=== PATIENT | female | born 1950 | race Caucasian/White ===

== ENCOUNTER 2019-07-20 15:47 | Outpatient (CLI) | payer MEDICARE, MEDICAID, SELFPAY ==
[2019-07-20 16:55] LABS: Alanine Aminotransferase 11 U/L (0-33); Albumin Level 4.4 g/dL (3.5-5.2); Alkaline Phosphatase 101 IU/L (35-105); Anion Gap 13.9 (5-19); Aspartate Amino Transferase 21 U/L (0-32); Blood Urea Nitrogen 10 mg/dL (8-23); Calcium 9.8 mg/Dl (8.8-10.2); Carbon Dioxide 30 mmol/L (22-29); Chloride 100 mmol/L (98-107); Globulin 3.2 g/dL (1.3-4.6); Glomerular Filtration Rate 99.4 mL/min (90-130); Glucose 92 mg/dL (74-106); Potassium 3.9 mmol/L (3.5-5.1); Sodium 140 mmol/L (136-145); Total Bilirubin 0.4 mg/dL (0.15-1.2); Total Protein 7.6 g/dL (6.6-8.7)
== END 2019-07-20 15:48 | disposition home or self-care (01) ==
LOC: LAB 15:54
PROVIDERS: Family Provider Family Medicine; PCP Internal Medicine Cardiovascular Disease; Visit Provider Internal Medicine Critical Care Medicine
DX: J44.9 Chronic obstructive pulmonary disease, unspecified (principal)
CPT/HCPCS: 80053

== ENCOUNTER 2019-08-02 14:23 | Outpatient (CLI) | payer MEDICARE, MEDICAID, SELFPAY ==
--- NOTE | 2019-08-02 14:32 | XR_ITS ---
WS: [id number] DEXA (DUAL ENERGY X-RAY ABSORPTIOMETRY) Bone mineral density was performed using a [employer] machine. HISTORY: OSTEOPOROSIS COMPARISON: None available. Lumbar spine BMD (L1-L4): 0.805 g/cm2 T score: -3.1 Z score: -0.5 Total hip BMD: Left: 0.610 g/cm2. T score: -3.2 Z score: -1.1 Right: 0.598 g/cm2. T score: -3.3 Z score: -1.2 10 year probability of a major osteoporotic fracture is 25%. XR/XR DEXA axial skeleton* 59229 IMPRESSION: OSTEOPOROSIS based upon the WHO classification for females. Patient has signifi cant risk for fracture.
== END 2019-08-02 14:24 | disposition home or self-care (01) ==
LOC: RADWPI 14:28
PROVIDERS: Family Provider Family Medicine; PCP Internal Medicine Cardiovascular Disease; Visit Provider Family Medicine
DX: M81.8 Other osteoporosis without current pathological fracture (principal)
CPT/HCPCS: 77080

== ENCOUNTER 2019-08-29 09:50 | Day surgery (SDC) | payer MEDICARE, MEDICAID, SELFPAY ==
[2019-08-26 12:43] VITALS: BMI 14.6
--- NOTE | 2019-08-29 10:05 | ANES.PREANE2 ---
Pre-Anesthetic Assessment Pre-Anesthetic Assessment: Height/Weight: Height 1.57 m Weight 36.287 kg Proposed Procedure: Operation Date: 08/29/19 12:00 Proposed Procedures p Colonoscopy Z12.11 73726(Not Applicable) - Yoseph Herndon MD Was Beta Contreras taken within 24 hours: Yes Social: Social History: Tobacco and No alcohol Exam: Pre-Anes Outpt Exam: alert, oriented x 3, clear to auscultation bilaterally and regular rate & rhythm Airway: Submandibular: WNL Cervical ROM: WNL MP: 2 Dentition: Full History/ROS: No significant history except as noted Pulmonary: Pulmonary: COPD, Cough and BRITTON CV/HEM: CV/HEM: HTN and PVD : : None reported Hepatic: Hepatic: None reported GI: GI: GERD (not well controlled) Metabolic: Metabolic: Hyperlipidemia Musc/skel: Musc/skel: OA/DJD Neuropsych: Neuropsych: TIA (2018) Anesthetic Plan: ASA status: 4 Anesthesia: Anesthesia Evaluation and MAC Risk of > 500 ml blood loss (7ml/kg in children): No PFSH Anesthesia PFSH: Medical History (Updated 08/18/19 @ 10:25 by Mickey Engel DPM) Carotid artery stenosis Chest pain COPD (chronic obstructive pulmonary disease) COPD exacerbation GERD (gastroesophageal reflux disease) History of colon polyps (~2002) HTN (hypertension) Hyperlipidemia Nicotine dependence PVD (peripheral vascular disease) TIA (transient ischemic attack) Surgical History H/O exploratory laparotomy H/O eye surgery H/O tubal ligation History of appendectomy History of colonoscopy (~2002) History of hysterectomy History of removal of ovarian cyst Social History Smoking and tobacco status: current every day smoker cigarettes Packs smoked per day: 1 Years cigarettes smoked: 45 Second hand smoke exposure: No Alcohol intake: never Adopted: No Caregiver/support person: Yes Lives independently: Yes Household members: none Housing: Apartment Marital status: Single service: No Current occupational status: retired Current occupational exposures/hazards: No Pets and animals: No History of recent travel: No Sexually active: No Current gender identity: Female Kaylin/Yazidism: Judaism Special kaylin needs: No Agree to transfusion: No Financial difficulty paying for basics: Decline to Answer Data Anesthesia Cardiac Studies: No Data to Display
[2019-08-29 10:52] VITALS: BP 110/64; PULSE 102; RESP 18; TEMP 36.9; O2SAT 94
[2019-08-29] MEDS: sodium chloride 0.9% 1,000 ML 30 ML (10:58)
--- NOTE | 2019-08-29 11:46 | PM.HPUD ---
H&P update H&P Update: DATE OF SURGERY/PROCEDURE: 08/29/19 DATE H&P PERFORMED: 08/15/19 H&P UPDATE INFORMATION: H&P completed within last 30 days and No changes to prior documentation PREOP DIAGNOSIS: Screening colonoscopy PRIMARY INDICATION FOR PROCEDURE: The same PLANNED PROCEDURE: Operation Date: 08/29/19 12:00 Proposed Procedures p Colonoscopy Z12.11 68679(Not Applicable) - Yoseph Herndon MD Full H&P Perinent History: Medical/Surgical History: Medical History (Updated 08/18/19 @ 10:25 by Mickey Enegl DPM) Carotid artery stenosis Chest pain COPD (chronic obstructive pulmonary disease) COPD exacerbation GERD (gastroesophageal reflux disease) History of colon polyps (~2002) HTN (hypertension) Hyperlipidemia Nicotine dependence PVD (peripheral vascular disease) TIA (transient ischemic attack) Family History: Family History (Updated 08/15/19 @ 10:13 by Opal Arnold RN) Father CAD (coronary artery disease) Grandmother FH: CABG (coronary artery bypass surgery) Denies family history of Anesthesia complication Bleeding disorder Social History: Social History Smoking and tobacco status: current every day smoker cigarettes Packs smoked per day: 1 Years cigarettes smoked: 45 Second hand smoke exposure: No Alcohol intake: never Adopted: No Caregiver/support person: Yes Lives independently: Yes Household members: none Housing: Apartment Marital status: Single service: No Current occupational status: retired Current occupational exposures/hazards: No Pets and animals: No History of recent travel: No Sexually active: No Current gender identity: Female Kaylin/Cheondoism: Orthodoxy Special kaylin needs: No Agree to transfusion: No Financial difficulty paying for basics: Decline to Answer
[2019-08-29 12:13] VITALS: BP 88/47; PULSE 72; RESP 18; TEMP 36.8; O2SAT 99
[2019-08-29 12:23] VITALS: BP 109/54; PULSE 76; RESP 18; O2SAT 100
[2019-08-29 12:33] VITALS: BP 128/69; PULSE 79; RESP 18; O2SAT 100
== END 2019-08-29 12:35 | disposition home or self-care (01) ==
PROVIDERS: Family Provider Family Medicine; PCP Family Medicine; Visit Provider Surgery
PROC: 0DJD8ZZ Inspection of Lower Intestinal Tract, Via Natural or Artificial Opening Endoscopic (ICD-10-PCS; CPT 45378; principal; 2019-08-29 12:00)
DX: Z12.11 Encounter for screening for malignant neoplasm of colon (principal); K62.1 Rectal polyp; J44.9 Chronic obstructive pulmonary disease, unspecified; K21.9 Gastro-esophageal reflux disease without esophagitis; I10 Essential (primary) hypertension; E78.5 Hyperlipidemia, unspecified; F17.210 Nicotine dependence, cigarettes, uncomplicated; Z86.73 Personal history of transient ischemic attack (TIA), and cerebral infarction without residual deficits; Z82.49 Family history of ischemic heart disease and other diseases of the circulatory system; Z79.82 Long term (current) use of aspirin; M19.90 Unspecified osteoarthritis, unspecified site
CPT/HCPCS: 12345; 45385; J2704; J7030

== ENCOUNTER 2020-01-20 08:56 | Outpatient (CLI) | payer MEDICARE, MEDICAID, SELFPAY ==
[2020-01-20 09:44] VITALS: O2SAT 95
--- NOTE | 2020-01-20 14:10 | PFTS_ITS ---
Date of Study:01/20/20 Date of Dictation: MECHANICS: Forced vital capacity (FVC) is reduced. Forced expiratory volume in one second (FEV1) is reduced. FEV1/FVC is reduced. FLOW VOLUME LOOP: Reduced flow at all lung volumes. LUNG VOLUMES: The lung volumes are not measured. The inspiratory capacity and expiratory reserve volume are both reduced. DIFFUSING CAPACITY FOR CARBON MONOXIDE: Severely reduced. INTERPRETATION: The pulmonary function tests are consistent with severe obstruction. A component of restriction cannot be ruled out in the absence of lung volumes. Gas exchange (DLCO) is severely reduced. MTDD
== END 2020-01-20 08:57 | disposition home or self-care (01) ==
LOC: RT 08:59
PROVIDERS: Family Provider Family Medicine; PCP Family Medicine; Visit Provider Internal Medicine Critical Care Medicine
DX: J44.9 Chronic obstructive pulmonary disease, unspecified (principal)
CPT/HCPCS: 94010; 94729

== ENCOUNTER 2020-01-23 09:24 | Outpatient (CLI) | payer MEDICARE, MEDICAID, SELFPAY ==
--- NOTE | 2020-01-23 09:28 | CT_ITS ---
WS: [id number] LDCT LUNG CANCER SCREENING TECHNIQUE: Noncontrast CT of the chest with coronal and sagittal reformatted images. CLINICAL INFORMATION: NICOTINE DEPENDENCE COMPARISON: None. DLP: 103.1 mGy.cm DIvol: 2.[address] scans at [facility] use at least one of these dose optimization techniques: automat ed exposure control; mA and/or kV adjustment per patient size (includes targeted exams where dose is matched to clinical indication); or iterative reconstruction. FINDINGS: Chronic emphysematous changes. Fibrosis in the lung apices. Scattered parenchymal fibrosis in both ketty ngs. Fibrotic appearing nodule in the left upper lobe anteriorly measuring 5.5 mm. Vascular and coron fatimah calcification. CT/CT lung screening [id number] IMPRESSION: LUNG-RADS: 2-Benign Appearance or Behavior FOLLOW UP: 12 Month: Continue annual screening with LDCT
== END 2020-01-23 09:25 | disposition home or self-care (01) ==
LOC: RAD 09:27
PROVIDERS: Family Provider Family Medicine; PCP Family Medicine; Visit Provider Internal Medicine Critical Care Medicine
DX: Z12.2 Encounter for screening for malignant neoplasm of respiratory organs (principal); F17.210 Nicotine dependence, cigarettes, uncomplicated
CPT/HCPCS: G0297

== ENCOUNTER 2020-02-07 12:59 | Outpatient (CLI) | payer MEDICARE, MEDICAID, SELFPAY ==
--- NOTE | 2020-02-07 13:23 | US_ITS ---
WS: [id number] ULTRASOUND BREAST BILATERAL TECHNIQUE: Ultrasound bilateral breasts screening CLINICAL INFORMATION: SCREENING FOR BREAST CANCER/PT DECLINING MAMMO HISTORY: Patient with prior rib fractures from mammogram at outside facility. Bilateral breast ultra sound performed for screening COMPARISON: None. FINDINGS: Ultrasound bilateral breasts. Four-quadrant ultrasound performed of both breasts. No evidence of unde rlying pathologic mass or lesion. No suspicious findings. No lesions to target for biopsy. Normal und erlying breast tissue. US/US breast BI complete [id number] IMPRESSION: BI-RADS 1 negative
== END 2020-02-07 13:00 | disposition home or self-care (01) ==
LOC: RADSHAW 13:05
PROVIDERS: PCP Family Medicine; Visit Provider Family Medicine
DX: Z12.31 Encounter for screening mammogram for malignant neoplasm of breast (principal)
CPT/HCPCS: 76641

== ENCOUNTER 2020-02-07 13:06 | Outpatient (CLI) | payer MEDICARE, MEDICAID, SELFPAY ==
--- NOTE | 2020-02-07 13:16 | USCV_ITS ---
Netta Champion Age: 69 Gender: F : 1950 Exam Date: 02/07/2020 13:51 Ordering Phys: Marlen Roberson MD ([email or web address]) Technologist: Shilpa Welsh Exam Location[place] [facility] [place]ication: RECHECK OF CCA STENOSIS Risk Factors: Unknown Previous Vascular Surgery: None Right Brachial BP: / Left Brachial BP: / Right Left Velocity (cm/s) Spectral Plaque Velocity (cm/s) Spectral Plaque Syst/Diast Broadening Syst/Diast Broadening 101.40/19.80 Prox CCA 97.40 / 29.90 95.90/ 14.30 Mid CCA 77.80 / 23.90 42.70/ 10.50 Distal CCA 67.50 / 16.20 78.20/ 19.70 Prox ICA 76.90 / 14.50 101.70/23.90 Mid ICA 107.80/ 35.50 87.20/ 23.90 Distal ICA 156.40/ 47.30 57.20 ECA 84.60 1.06 ICA/CCA 2.01 Antegrade Vertebral Antegrade 101.7/ 17.90 cm/s 69.80/ 21.70 cm/s 0 Bi Subclavian Bi 83.70 166.6 0 FINDINGS Moderate heterogeneous irregular plaques at the bifurcation and internal carotid arteries bilaterally. Intimal thickening and minimal plaques in the common carotid arteries bilaterally. Antegrade flow in the vertebral arteries bilaterally. Elevated velocity in the distal internal carotid artery on the left side Elevated Doppler velocity in the left subclavian artery CONCLUSIONS Moderate heterogeneous irregular plaques at the bifurcations and proximal internal carotid arteries bilaterallywith velocity elevation consistent with 16-49% stenosis. Elevated velocity in the distal internal carotid artery on the left side, may suggest hemodynamically significant stenosis. Intimal thickening and minimal plaques in the common carotid arteries bilaterally. Elevated velocity in the left subclavian artery may suggest hemodynamically significant stenosis No similar previous studies are available for comparison Consider CTA, to better evaluate the distal ICA and the aortic arch vessels, if clinically indicated Dr Thanh Velazquez MD [facility] (Electronically Signed) Final Date: 09 February 2020 08:43 S
== END 2020-02-07 13:07 | disposition home or self-care (01) ==
LOC: RADSHAW 13:09
PROVIDERS: PCP Family Medicine; Visit Provider Internal Medicine Cardiovascular Disease
DX: I25.10 Atherosclerotic heart disease of native coronary artery without angina pectoris (principal); I65.23 Occlusion and stenosis of bilateral carotid arteries
CPT/HCPCS: 93880

== ENCOUNTER 2020-03-31 11:41 | Emergency (ER) | payer MEDICARE, MEDICAID, SELFPAY ==
[2020-03-31 11:54] VITALS: BP 181/117; PULSE 96; RESP 18; TEMP 37.1; O2SAT 96; BMI 15.0
[2020-03-31 12:22] LABS: Basophils % 0.2 %; Eosinophils % 0.1 %; Hematocrit 50.8 % (37.0-47.0); Hemoglobin 16.4 g/dL (11.5-15.3); Lymphocytes # 0.9 10^3/uL (0.8-4.8); Lymphocytes % 7.4 %; Mean Corpuscular HGB Conc 32.3 g/dL (30.0-36.0); Mean Corpuscular Hemoglobin 32.3 pg (28.0-34.0); Mean Corpuscular Volume 100.2 fL (81-99); Mean Platelet Volume 11.9 fL (7.4-10.4); Monocytes # 0.6 10^3/uL (0.2-0.9); Monocytes % 4.9 %; Neutrophils # 10.33 10^3/uL (1.8-7.7); Neutrophils % 87.1 %; Nucleated Red Blood Cells % 0 %; Platelet Count 153 10^3/cmm (130-400); Red Blood Count 5.07 10^6/uL (4.1-5.3); Red Cell Distribution Width 12.5 % (12.1-15.1); White Blood Count 11.9 10^3/uL (4.0-10.0)
--- NOTE | 2020-03-31 12:34 | XRR_ITS ---
PROCEDURE INFORMATION: Exam: XR Abdomen, 1 View Exam date and time: 03/31/2020 12:35 PM Age: 69 years old Clinical indication: Abdominal pain; Additional info: Constipation TECHNIQUE: Imaging protocol: XR of the abdomen. Views: Frontal supine view of the abdomen. 1 View. COMPARISON: No relevant prior studies available. FINDINGS: Gastrointestinal tract: Multiple dilated small bowel loops are present in the pelvis. These findings correspond to mild ileus The exam does not show evidence of bowel obstruction Bones/joints: Unremarkable. XR/XR abdomen 1V* [id number] IMPRESSION: Mild ileus as described
--- NOTE | 2020-03-31 12:35 | W.ED.ABDPA2 ---
HPI - Abdominal Pain General: Chief Complaint: Abdominal Pain Stated Complaint: ABD PAIN/N Time Seen by Provider: 03/31/20 12:34 Source: patient Mode of arrival: ambulatory Limitations: no limitations History of Present Illness: HPI narrative: History of fecal impactions, constipation according to patient recurrently. Pain located to the left side of abdomen, feels nauseated and noticed that she was unable to pass gas. MD elicited complaint: abdominal pain Pertinent past history: constipation Onset (ago): day(s) Pain Consistency: intermittent Location: LLQ Severity: moderate Quality: cramping Exacerbating factors: bowel movement Relieving factors: bowel movement Associated Symptoms: Reports change in bowel habits, constipation, GI cramping and nausea Treatments prior to arrival: other (Stool softeners) Review of Systems General: Reports: 10 or more systems reviewed and unremarkable except in HPI and below GI: Reports: nausea, constipation, GI cramping and change in bowel habits PFSH ED PFSH: Medical History Carotid artery stenosis Chest pain COPD (chronic obstructive pulmonary disease) COPD exacerbation GERD (gastroesophageal reflux disease) History of colon polyps (~2002) HTN (hypertension) Hyperlipidemia Nicotine dependence PVD (peripheral vascular disease) TIA (transient ischemic attack) Surgical History H/O exploratory laparotomy H/O eye surgery H/O tubal ligation History of appendectomy History of colonoscopy (~2002) History of hysterectomy History of removal of ovarian cyst Family History Father CAD (coronary artery disease) Grandmother FH: CABG (coronary artery bypass surgery) Denies family history of Anesthesia complication Bleeding disorder Social History Smoking and tobacco status: current every day smoker cigarettes Packs smoked per day: 1 Years cigarettes smoked: 45 Second hand smoke exposure: No Alcohol intake: never Adopted: No Caregiver/support person: Yes Lives independently: Yes Household members: none Housing: Apartment Marital status: Single service: No Current occupational status: retired Current occupational exposures/hazards: No Pets and animals: No History of recent travel: No Sexually active: No Current gender identity: Female Kaylin/Sikhism: Uatsdin Special kaylin needs: No Agree to transfusion: No Financial difficulty paying for basics: Decline to Answer Physical Exam Const: COMMON NORMALS: no acute distress and patient oriented x3 GENERAL APPEARANCE: cooperative, comfortable and well kempt NUTRITIONAL APPEARANCE: thin HENMT: COMMON NORMALS: normocephalic and atraumatic HEAD & SCALP: normocephalic and atraumatic Eye: COMMON NORMALS: Equal, round and reactive pupils present PUPIL: Yes Equal, round and reactive pupils present Neck/C-Spine: COMMON NORMALS: full ROM, no lymphadenopathy and no JVD Lymph: LYMPHATIC: no lymphadenopathy noted Chest: COMMONS NORMALS: normal inspection of the chest Resp: COMMON NORMALS: normal respiratory effort, No retractions, No use of accessory muscles and clear to auscultation bilaterally AUSCULTATION: clear to auscultation bilaterally Cardio: COMMON NORMALS: no JVD, regular rate, regular rhythm, S1 normal heart sound present and S2 normal heart sound present RATE: regular rate RHYTHM: regular rhythm HEART SOUNDS: S1 normal heart sound present and S2 normal heart sound present GI: COMMON NORMALS: Soft to palpation INSPECTION: Yes normal to inspection AUSCULTATION: Yes normoactive bowel sounds PALPATION: Yes Soft to palpation and Yes Tenderness to palpation present (GI) Details: LLQ and LUQ PERCUSSION: normal to percussion : COMMON NORMALS: Yes no CVA tenderness BLADDER/KIDNEY EXAM: Yes no CVA tenderness Back/Pelvis: COMMON NORMALS: no CVA tenderness Extremity: COMMON NORMALS: normal to inspection Neuro: COMMON NORMALS: patient oriented x3 Psych: COMMON NORMALS: mental status grossly normal APPEARANCE: Yes well kempt Skin: COMMON NORMALS: no rashes or lesions noted GENERAL SKIN EXAM: no rashes or lesions noted Course Reevaluation(s): Reevaluation #1: Generalized abdominal pain, diffuse. Will CT abd to evaluate cause of pain. Time: 13:58 Reevaluation #2: Discussed CT results with patient. Will likely require admission due to SBO vs Illeus, and colitis. Patient agrees. informed and will facilitate admission. Time: 15:55 Vital Signs: Vital signs: Vital Signs Temperature 98.8 F 03/31/20 11:54 Pulse Rate 81 03/31/20 14:28 Respiratory Rate 18 03/31/20 11:54 Blood Pressure 192/105 03/31/20 14:28 Pulse Oximetry 96 03/31/20 11:54 MDM - Abdominal Pain MDM Narrative: Medical decision making narrative: XR of abd, to rule out obstruction or obstipation. History of fecal impactions, and cycles of constipation. Lab Data: Labs: Lab Results 03/31/20 03/31/20 03/31/20 Range/Units 12:17 12:17 12:59 WBC 11.9 H (4.0-10.0) 10^3/ uL RBC 5.07 (4.1-5.3) 10^6/u L Hgb 16.4 H (11.5-15.3) g/dL Hct 50.8 H (37.0-47.0) % MCV 100.2 H (81-99) fL MCH 32.3 (28.0-34.0) pg MCHC 32.3 (30.0-36.0) g/dL RDW 12.5 (12.1-15.1) % Plt Count 153 (130-400) 10^3/c mm MPV 11.9 H (7.4-10.4) fL Neut % (Auto) 87.1 % Lymph % (Auto) 7.4 % Mellette % (Auto) 4.9 % Eos % (Auto) 0.1 % Baso % (Auto) 0.2 % Neut # (Auto) 10.33 H (1.8-7.7) 10^3/u L Lymph # (Auto) 0.9 (0.8-4.8) 10^3/u L Mellette # (Auto) 0.6 (0.2-0.9) 10^3/u L Eos # (Auto) 0.0 (0.0-0.8) 10^3/u L Baso # (Auto) 0.0 (0.0-0.1) 10^3/u L Nucleated RBC % (a uto) 0 % Nucleated RBCs # 0.0 /100WBC Sodium 134 L (136-145) mmol/L Potassium 3.7 (3.5-5.1) mmol/L Chloride 97 L (98-107) mmol/L Carbon Dioxide 27 (22-29) mmol/L Anion Gap 13.7 (5-19) BUN 10 (8-23) mg/dL Creatinine 0.6 (0.5-0.9) mg/dL GFR Calculation 99.1 (90-130) mL/min Glucose 148 H (65-115) mg/dL Calculated Osmolal ity 280 L (285-295) mOsm/k g Calcium 9.3 (8.5-10.5) mg/dL Magnesium 1.8 (1.7-2.3) mg/dL Total Bilirubin 0.6 (0.15-1.2) mg/dL AST 23 (0-32) U/L ALT 13 (0-33) U/L Alkaline Phosphata se 101 (35-105) IU/L Total Protein 7.5 (6.6-8.7) g/dL Albumin 4.0 (3.5-5.2) g/dL Globulin 3.5 (1.3-4.6) g/dL Lipase 73 H (13-60) U/L Urine Color Yellow (Yellow) Urine Appearance Sl hazy (CLEAR) Urine pH 6 (5-7) Ur Specific Gravit y 1.020 (1.005-1.030) Urine Protein 1+ H (Negative) Urine Glucose (UA) Norm (Normal) Urine Ketones Negative (Negative) Urine Blood Neg (Negative) Urine Nitrate Negative (Negative) Urine Bilirubin 1+ H (Negative) Urine Urobilinogen 1 H (Negative) mg/dL Ur Leukocyte Winter ase Negative (Negative) Urine RBC None (0-2) /hpf Urine WBC None (0-5) /hpf Ur Squamous Epith Cells 0-4 H (0-5) /hpf Amorphous Sediment Not Reportable Urine Bacteria Trace (NONE) /hpf Hyaline Casts 0-4 H /lpf Urine Mucus 1+ /hpf Discharge Plan Discharge Prescriptions: No Action albuterol sulfate 2.5 mg /3 mL (0.083 %) solution for nebulization 2.5 mg INHALATION Q4H PRN (Reason: shortness of breath or wheezing) Qty: 90 RF: 0 calcium 1200mg with Vitamin D3 2 cap PO DAILY RF: 0 lisinopril 20 mg tablet 20 mg PO DAILY Qty: 90 RF: 2 atorvastatin 20 mg tablet 20 mg PO DAILY Qty: 90 RF: 2 Chantix Continuing Month Box 1 mg tablet 1 mg PO BID Qty: 56 RF: 0 omeprazole 20 mg capsule,delayed release(DR/EC) 20 mg PO DAILY Qty: 90 RF: 3 loratadine 10 mg tablet 10 mg PO DAILY Qty: 90 RF: 3 Stiolto Respimat 2.5-2.5 mcg/actuation mist 2 puff INHALATION Q24H Qty: 4 RF: 3 aspirin 81 mg Tablet,Delayed Release (Dr/Ec) 81 mg PO DAILY RF: 0 Colace 100 mg Capsule 100 mg PO DAILY RF: 0 Ventolin HFA 90 mcg/actuation Hfa Aerosol Inhaler 2 puff INHALATION Q4H PRN (Reason: Shortness Of Breath) RF: 0 mirtazapine 15 mg tablet 15 mg PO BEDTIME RF: 0 Coding Level of Care Code ED Autopsy Assistant for Chg Fwd Exam Comprehensive
[2020-03-31 12:50] LABS: Alanine Aminotransferase 13 U/L (0-33); Alkaline Phosphatase 101 IU/L (35-105); Anion Gap 13.7 (5-19); Aspartate Amino Transferase 23 U/L (0-32); Blood Urea Nitrogen 10 mg/dL (8-23); Calcium 9.3 mg/dL (8.5-10.5); Carbon Dioxide 27 mmol/L (22-29); Chloride 97 mmol/L (98-107); Globulin 3.5 g/dL (1.3-4.6); Glomerular Filtration Rate 99.1 mL/min (90-130); Glucose 148 mg/dL (65-115); Lipase 73 U/L (13-60); Magnesium 1.8 mg/dL (1.7-2.3); Osmolality Calculated 280 mOsm/kg (285-295); Potassium 3.7 mmol/L (3.5-5.1); Sodium 134 mmol/L (136-145); Total Bilirubin 0.6 mg/dL (0.15-1.2); Total Protein 7.5 g/dL (6.6-8.7)
[2020-03-31] MEDS: ondansetron 2 mg/ML SDV 2 mL 4 MG IVP (12:54)
[2020-03-31] MEDS: sodium chloride 0.9% 1,000 ML 100 ML IV (12:55)
[2020-03-31 14:07] LABS: Urine Appearance SL Hazy (CLEAR); Urine Color Yellow (Yellow); pH Urine 6 (5-7)
[2020-03-31 14:08] LABS: Add Urine Microscopic? YES; Bilirubin Urine 1+ (Negative); Blood Urine Neg (Negative); Glucose Urine UA Norm (Normal); Ketones Urine Negative (Negative); Leukocyte Esterase Urine Negative (Negative); Nitrate Urine Negative (Negative); Protein Urine 1+ (Negative); Urobilinogen Urine 1 mg/dL (Negative)
[2020-03-31 14:09] LABS: Bacteria Urine TRACE /hpf; Hyaline Casts Urine 0-4 /lpf; Mucus Urine 1+ /hpf; Squamous Epithelial Cell Urine 0-4 /hpf (0-5)
[2020-03-31 14:11] LABS: Add Urine Culture? No
--- NOTE | 2020-03-31 14:25 | CTR_ITS ---
PROCEDURE INFORMATION: Exam: CT Abdomen And Pelvis Without Contrast Exam date and time: 03/31/2020 2:35 PM Age: 69 years old Clinical indication: Abdominal pain; Localized; Prior surgery; Surgery date: 6+ months; Surgery type: Hyst, appy; Patient HX: C/O lower abd/pelvic pain TECHNIQUE: Imaging protocol: Computed tomography of the abdomen and pelvis without contrast. Radiation optimization: All CT scans at this facility use at least one of these dose optimization techniques: automated exposure control; mA and/or kV adjustment per patient size (includes targeted exams where dose is matched to clinical indication); or iterative reconstruction. COMPARISON: CR (ABDOMEN, ) 03/31/2020 1:02 PM RADIATION DOSE METRICS: Total DLP (mGy-cm): 122.97 FINDINGS: Liver: Normal. No mass. Gallbladder and bile ducts: Gallbladder not visualized. Pancreas: Normal. No ductal dilation. Spleen: Normal. No splenomegaly. Adrenals: Normal. No mass. Kidneys and ureters: Normal. No hydronephrosis. Stomach and bowel: There are air-fluid levels in the distal colon suggesting mild nonspecific colitis versus other diarrheal illness. Moderate to large stool burden. There are air-fluid levels in multiple dilated small bowel. Suboptimally evaluated without oral or IV contrast. Appendix: There has been an appendectomy. Intraperitoneal space: There is likely free intraperitoneal fluid in the pelvis. This is not well evaluated without oral or IV contrast in this patient with a paucity of intra-abdominal/pelvic fat. Periappendiceal region is not well seen as there is no oral or IV contrast and a paucity of intraperitoneal fat. There is mild diffuse mesenteric inflammatory stranding. Periappendiceal fluid could not be excluded. Vasculature: Infrarenal abdominal aorta is ectatic measuring 2.5 cm in AP dimension. No evidence for aneurysm. Calcified plaque is present within multiple vascular structures. Lymph nodes: Unremarkable. No enlarged lymph nodes. Bladder: See Stomach and bowel finding. Reproductive: The uterus is not visualized, consistent with hysterectomy. Bones/joints: Unremarkable. No acute fracture. Soft tissues: Unremarkable. CT/CT abdomen pelvis con [id number] IMPRESSION: 1. There are air-fluid levels in multiple dilated small bowel loops consistent with small bowel obstruction versus ileus. This is suboptimally evaluated without IV or contrast. 2. There is likely free intraperitoneal fluid in the pelvis. This is not well evaluated without oral or IV contrast in this patient with a paucity of intra-abdominal/pelvic fat. Radiation Dose CTDIVOL = (mGy): DLP = 122.97 (mGy-cm)
[2020-03-31 14:28] VITALS: BP 192/105; PULSE 81
[2020-03-31 16:53] VITALS: BP 136/86; PULSE 94; RESP 18; O2SAT 96
== END 2020-03-31 16:53 | disposition left against medical advice (07) ==
PROVIDERS: Emergency Medicine; Emergency Provider Emergency Medicine; PCP Family Medicine
DX: R10.9 Unspecified abdominal pain (principal); Z79.82 Long term (current) use of aspirin; J44.9 Chronic obstructive pulmonary disease, unspecified; I10 Essential (primary) hypertension; E78.5 Hyperlipidemia, unspecified; Z86.73 Personal history of transient ischemic attack (TIA), and cerebral infarction without residual deficits; I73.9 Peripheral vascular disease, unspecified; F17.210 Nicotine dependence, cigarettes, uncomplicated
CPT/HCPCS: 12345; 36415; 74018; 74176; 80053; 81001; 83690; 83735; 85025; 96365; 96366; 96375; 99282; 99284; J2270; J2405; J7030

== ENCOUNTER 2020-03-31 17:38 | Inpatient (IN) | payer MEDICARE, MEDICAID, SELFPAY ==
[2020-03-31 17:52] VITALS: BP 146/88; PULSE 98; RESP 16; O2SAT 98; BMI 15.1
[2020-03-31] MEDS: sodium chloride 0.9% 1,000 ML 999 ML IV (18:52)
[2020-03-31 18:53] VITALS: RESP 18; O2SAT 98
[2020-03-31] MEDS: morphine 4 mg/mL SDV 1 mL IVP (18:53)
[2020-03-31] MEDS: ondansetron 2 mg/ML SDV 2 mL 4 MG IVP (18:53)
--- NOTE | 2020-03-31 19:07 | PM.HP ---
Providers/Chief Complaint Primary Care Provider: Arti Rich MD Chief Complaint: ABD PAIN History of Present Illness Netta Champion is a 69 year old female who carries history of non-oxygen dependent COPD, severe COPD, recent colonoscopy revealed hyperplastic polyp, came in today for worsening abdominal cramps. Patient is stating that her symptoms started on with abdominal cramps which got worse on Thursday, she started experiencing abdominal pain which was diffuse but more intense in the right lower quadrant, she did not notice any fever, vomiting, blood in stool or diarrhea. Her last bowel movement was 3 days ago, she has not been able to eat much in the last 72 hours. She is denying night sweats but endorsing weight loss. She is trying to supplement her diet with boost and eat more protein. She is currently smoking 1 pack/day. 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 She has been experiencing dry heaves without any episodes of emesis. She is endorsing history of hysterectomy, appendectomy, laparotomy secondary to bowel obstruction due to adhesions. Diagnosis in the ER revealed mild leukocytosis, hemoconcentration hemoglobin 16.4 mild hyponatremia, mild hypokalemia lipase 73, CT abdomen revealed ileus Patient at the time my evaluation had no active abdominal pain, hemodynamically stable, Dr. Self has been notified In the ER she received Zofran, morphine and normal saline. Review of Systems Const: Reports: chills, body aches and fatigue; Denies: fever(s) Eyes: Denies: change in vision ENMT: Denies: throat pain Card: Reports: dyspnea on exertion; Denies: chest pain Resp: Reports: dyspnea GI: Reports: abdominal pain, nausea, heartburn and GI cramping; Denies: vomiting, diarrhea or constipation : Denies: flank pain Musc: Denies: neck pain Skin/Breast: Denies: rash Neuro: Denies: headache(s) Psych: Denies: anxiety Endo: Denies: polyuria Moses/Lymph: Denies: easy bruising All/Imm: Denies: urticaria Medications/Allergies Home Medications Medication Instructions Recorded Confirmed Last Taken Type calcium 1200mg with Vitamin D3 1 cap PO BID 07/20/19 03/31/20 03/31/20 History albuterol sulfate 2.5 mg INHALATION Q4H PRN #90 ml 08/16/19 03/31/20 08/28/19 Rx atorvastatin 20 mg tablet 20 mg PO DAILY #90 tab 01/04/20 03/31/20 03/31/20 Rx lisinopril 20 mg tablet 20 mg PO DAILY #90 tab 01/04/20 03/31/20 03/31/20 Rx varenicline 1 mg tablet 1 mg PO BID #56 tab 01/04/20 03/31/20 Unknown Rx loratadine 10 mg tablet 10 mg PO DAILY #90 tab 02/09/20 03/31/20 03/31/20 Rx omeprazole 20 mg capsule,delayed 20 mg PO DAILY #90 cap 02/09/20 03/31/20 03/30/20 Rx release tiotropium 2.5 mcg-olodaterol 2.5 2 puff INHALATION Q24H #4 gm 02/21/20 03/31/20 03/31/20 Rx mcg/actuation mist for inhalation albuterol sulfate [Ventolin HFA] 2 puff INHALATION Q4H PRN 03/31/20 03/31/20 Unknown History aspirin 81 mg PO DAILY 03/31/20 03/31/20 03/31/20 History docusate sodium [Colace] 100 mg PO DAILY 03/31/20 03/31/20 03/31/20 History mirtazapine 15 mg PO BEDTIME 03/31/20 03/31/20 03/30/20 History Allergies Allergy/AdvReac Type Severity Reaction Status Date / Time azithromycin [From Zithromax] Allergy Unknown Unknown Verified 03/31/20 17:57 doxycycline Allergy Unknown Unknown Verified 03/31/20 17:57 famotidine [From Pepcid] Allergy Unknown Unknown Verified 03/31/20 17:57 heparin (porcine) Allergy Unknown Unknown Verified 03/31/20 17:57 Iodinated Contrast Media Allergy Unknown Unknown Verified 03/31/20 17:57 iodine Allergy Unknown Unknown Verified 03/31/20 17:57 Penicillins Allergy Unknown Unknown Verified 03/31/20 17:57 Sulfa (Sulfonamide Allergy Unknown Unknown Verified 03/31/20 17:57 Antibiotics) terazosin [From Hytrin] Allergy Unknown Unknown Verified 03/31/20 17:57 Tetanus Vaccines and Toxoid Allergy Unknown Unknown Verified 03/31/20 17:57 Tetracyclines Allergy Unknown Unknown Verified 03/31/20 17:57 PFSH Acute PFSH: Medical History Carotid artery stenosis Chest pain COPD (chronic obstructive pulmonary disease) COPD exacerbation GERD (gastroesophageal reflux disease) History of colon polyps (~2002) HTN (hypertension) Hyperlipidemia Nicotine dependence PVD (peripheral vascular disease) TIA (transient ischemic attack) Surgical History H/O exploratory laparotomy H/O eye surgery H/O tubal ligation History of appendectomy History of colonoscopy (~2002) History of hysterectomy History of removal of ovarian cyst Family History Father CAD (coronary artery disease) Grandmother FH: CABG (coronary artery bypass surgery) Denies family history of Anesthesia complication Bleeding disorder Social History Smoking and tobacco status: current every day smoker cigarettes Packs smoked per day: 1 Years cigarettes smoked: 45 Second hand smoke exposure: No Alcohol intake: never Adopted: No Caregiver/support person: Yes Lives independently: Yes Household members: none Housing: Apartment Marital status: Single service: No Current occupational status: retired Current occupational exposures/hazards: No Pets and animals: No History of recent travel: No Sexually active: No Current gender identity: Female Kaylin/Catholic: Yarsanism Special kaylin needs: No Agree to transfusion: No Financial difficulty paying for basics: Decline to Answer Vitals/I&O/Wt Last Vital Signs Pulse 98 03/31/20 17:52 Resp 18 03/31/20 18:53 BP 146/88 03/31/20 17:52 Pulse Ox 98 03/31/20 18:53 Weight last 48 hrs Weight 37.648 kg Physical Exam Narrative: EXAM NARRATIVE: Frail malnourished female Appears more than stated age S1, S2 no tachycardia heart failure Diminished breath sounds however no adventitious sounds, No active restaurant distress Tenderness on deep palpation and right lower quadrant and hypogastric region, no severe rigidity or abdominal guarding, bowel sounds hyperactive except right lower quadrant Right lower extremity no edema gangrene ulcer Neurologically nonfocal exam EOMI, PERRLA Appropriate mood and affect A&P Assessment and plan (1) Ileus: Status: Acute (2) Right foot pain: Status: Acute (3) COPD (chronic obstructive pulmonary disease): Status: Acute Additional A&P Information Ileus without signs of peritonitis Patient has history of appendectomy, hysterectomy, expiratory laparotomy for adhesiolysis Recent polypectomy revealed hyperplastic polyp No severe electrolyte abnormality Mild hypo natremia, hypokalemia noted We will replete hypokalemia with 40meq IV potassium chloride Check mag level Check TSH She is also taking antimuscarinic, loratadine on daily basis along tiotropium CT abdomen is revealing nonspecific colitis of distal colon with large stool burden with air-fluid level and small bowel, will place nasogastric tube, give 1 dose of Zosyn and reevaluate in the morning Serial abdominal exam, Right foot pain Following up with Dr. Engel, she has been diagnosed with porokeratosis No acute decompensation Severe COPD No acute exacerbation, non-oxygen dependent, Currently smoking 1 pack/day Need reinforcement to quit smoking N.p.o. Full code DVT prophylaxis fondaparinux as she has allergies to pork products Attestations Medical Necessity Statement*: Anticipating discharge in less than 48 hours for need stay in the hospital for conservative management of ileus versus partial SBO Time Spent in Patient Care: (>than 50% of time spent in counselling and/or direct pt care on unit). 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
[2020-03-31 20:23] VITALS: BP 138/74; PULSE 86; RESP 18; O2SAT 96
[2020-03-31 21:46] VITALS: BP 138/77; PULSE 89; RESP 17; TEMP 36.8; O2SAT 93
[2020-03-31 22:17] LABS: Magnesium 1.8 mg/dL (1.7-2.3)
--- NOTE | 2020-03-31 23:00 | XRR_ITS ---
PROCEDURE INFORMATION: Exam: XR Chest, 1 View Exam date and time: 03/31/2020 11:43 PM Age: 69 years old Clinical indication: Device placement; Ng tube; Additional info: After ng placement TECHNIQUE: Imaging protocol: XR of the chest Views: 1 view. COMPARISON: CR Chest 1 [place] [id number] 06/22/2019 5:15 PM FINDINGS: Tubes, catheters and devices: A nasogastric tube ends in the stomach. Lungs: The lungs are clear. Apical scars are noted. Pleural space: Unremarkable. No pleural effusion. No pneumothorax. Heart/Mediastinum: Unremarkable. No cardiomegaly. Bones/joints: Unremarkable. XR/XR chest 1V portable [id number] IMPRESSION: NG tube ends in the stomach
[2020-03-31] MEDS: cefTRIAXone 1,000 MG in sodium chloride 0.9% (plus) 50 ML 100 MG IV (23:44)
[2020-03-31] MEDS: dextrose 5%-sod chloride 0.45% 1,000 ML 75 ML IV (23:44)
[2020-03-31] MEDS: nicotine 21 mg Patch 1 PATCH TRANSDERMA (23:45)
[2020-04-01] VITALS (9 sets, daily range): BP systolic 123–154; BP diastolic 66–77; PULSE 69–92; RESP 16–22; TEMP 36.6–36.9; O2SAT 93–97
[2020-04-01] MEDS: metroNIDAZOLE IV 500 MG/100 ML PREMIX 100 MG IV ×2 (00:54→10:04)
[2020-04-01] MEDS: potassium chloride premix 40 MEQ/100 ML PREMIX 25 MEQ IV (02:18)
[2020-04-01] MEDS: lidocaine 1% INJ 20 mL 5 ML IV (02:55)
[2020-04-01 04:26] LABS: Basophils % 0.1 %; Eosinophils % 0.2 %; Hematocrit 46.5 % (37.0-47.0); Hemoglobin 15.1 g/dL (11.5-15.3); Lymphocytes # 1.2 10^3/uL (0.8-4.8); Lymphocytes % 15.1 %; Mean Corpuscular HGB Conc 32.5 g/dL (30.0-36.0); Mean Corpuscular Hemoglobin 32.2 pg (28.0-34.0); Mean Corpuscular Volume 99.1 fL (81-99); Mean Platelet Volume 12.8 fL (7.4-10.4); Monocytes # 0.4 10^3/uL (0.2-0.9); Monocytes % 4.9 %; Neutrophils # 6.51 10^3/uL (1.8-7.7); Neutrophils % 79.5 %; Nucleated Red Blood Cells % 0 %; Platelet Count 125 10^3/cmm (130-400); Red Blood Count 4.69 10^6/uL (4.1-5.3); Red Cell Distribution Width 12.6 % (12.1-15.1); White Blood Count 8.2 10^3/uL (4.0-10.0)
[2020-04-01 04:47] LABS: Anion Gap 10.8 (5-19); Blood Urea Nitrogen 13 mg/dL (8-23); Carbon Dioxide 28 mmol/L (22-29); Chloride 104 mmol/L (98-107); Glomerular Filtration Rate 158.3 mL/min (90-130); Glucose 129 mg/dL (65-115); Osmolality Calculated 290 mOsm/kg (285-295); Potassium 3.8 mmol/L (3.5-5.1); Sodium 139 mmol/L (136-145)
--- NOTE | 2020-04-01 07:10 | PM.CONSULT ---
Providers/Reason For Consult Consulting Physican/Specialty*: Yoseph Herndon MD Reason for Consult*: Concern for bowel obstruction Attending Physician: Lia Aponte MD Primary Care Provider: Arti Rich MD History of Present Illness History of Present Illness Chief Complaint: Abdominal pain History of present illness: This is a pleasant 69 years old female patient with history of COPD well-known to me from previous clinical encounters,Patient presents to the emergency department with worsening abdominal cramps that got worse last Thursday. Patient describes her pain as being diffuse and mostly in the right lower quadrant without being referred. Denies any fevers or vomiting or bleeding per orifices. About 4 days ago she had a bowel movement and she is well-known with her chronic constipation. Patient gives history of previous hysterectomy appendectomy and previous laparotomy for adhesio lysis. Apparently overnight patient was starting to vomit and an NG was placed had about 300 out gastric in color. Patient was seen in my office back in August 15, 2019 patient was seen at my office: This is a pleasant 68 years old female patient presents to my office with history of previous colonoscopy that was done back in 2002 and according to the patient she was told that she had an element of proctitis likely due to the colon preparation, otherwise there was nothing else going on per her description, and comes today being referred for screening colonoscopy, she denies any bleeding per rectum or colon cancer history or weight loss. And undergone a colonoscopy around that time and was found to have a small rectal polyp. Otherwise normal examination. Patient was further evaluated in the emergency department and a CT scan was obtained CT scan of the abdomen and pelvis FINDINGS: Liver: Normal. No mass. Gallbladder and bile ducts: Gallbladder not visualized. Pancreas: Normal. No ductal dilation. Spleen: Normal. No splenomegaly. Adrenals: Normal. No mass. Kidneys and ureters: Normal. No hydronephrosis. Stomach and bowel: There are air-fluid levels in the distal colon suggesting mild nonspecific colitis versus other diarrheal illness. Moderate to large stool burden. There are air-fluid levels in multiple dilated small bowel. Suboptimally evaluated without oral or IV contrast. Appendix: There has been an appendectomy. Intraperitoneal space: There is likely free intraperitoneal fluid in the pelvis. This is not well evaluated without oral or IV contrast in this patient with a paucity of intra-abdominal/pelvic fat. Periappendiceal region is not well seen as there is no oral or IV contrast and a paucity of intraperitoneal fat. There is mild diffuse mesenteric inflammatory stranding. Periappendiceal fluid could not be excluded. Vasculature: Infrarenal abdominal aorta is ectatic measuring 2.5 cm in AP dimension. No evidence for aneurysm. Calcified plaque is present within multiple vascular structures. Lymph nodes: Unremarkable. No enlarged lymph nodes. Bladder: See Stomach and bowel finding. Reproductive: The uterus is not visualized, consistent with hysterectomy. Bones/joints: Unremarkable. No acute fracture. Soft tissues: Unremarkable. CT/CT abdomen pelvis wo con [id number] IMPRESSION: 1. There are air-fluid levels in multiple dilated small bowel loops consistent with small bowel obstruction versus ileus. This is suboptimally evaluated without IV or contrast. 2. There is likely free intraperitoneal fluid in the pelvis. This is not well evaluated without oral or IV contrast in this patient with a paucity of intra-abdominal/pelvic fat. General surgery was consulted for further evaluation and potential intervention Review of Systems General: Reports: 10 or more systems reviewed and unremarkable except in HPI and below Meds/Allergies Home Medications and Allergies Home Medications Medication Instructions Recorded Confirmed Last Taken Type calcium 1200mg with Vitamin D3 1 cap PO BID 07/20/19 03/31/20 03/31/20 History albuterol sulfate 2.5 mg INHALATION Q4H PRN #90 ml 08/16/19 03/31/20 08/28/19 Rx atorvastatin 20 mg tablet 20 mg PO DAILY #90 tab 01/04/20 03/31/20 03/31/20 Rx lisinopril 20 mg tablet 20 mg PO DAILY #90 tab 01/04/20 03/31/20 03/31/20 Rx varenicline 1 mg tablet 1 mg PO BID #56 tab 01/04/20 03/31/20 Unknown Rx loratadine 10 mg tablet 10 mg PO DAILY #90 tab 02/09/20 03/31/20 03/31/20 Rx omeprazole 20 mg capsule,delayed 20 mg PO DAILY #90 cap 02/09/20 03/31/20 03/30/20 Rx release tiotropium 2.5 mcg-olodaterol 2.5 2 puff INHALATION Q24H #4 gm 02/21/20 03/31/20 03/31/20 Rx mcg/actuation mist for inhalation albuterol sulfate [Ventolin HFA] 2 puff INHALATION Q4H PRN 03/31/20 03/31/20 Unknown History aspirin 81 mg PO DAILY 03/31/20 03/31/20 03/31/20 History docusate sodium [Colace] 100 mg PO DAILY 03/31/20 03/31/20 03/31/20 History mirtazapine 15 mg PO BEDTIME 03/31/20 03/31/20 03/30/20 History Allergies Allergy/AdvReac Type Severity Reaction Status Date / Time azithromycin [From Zithromax] Allergy Unknown Unknown Verified 04/01/20 07:24 doxycycline Allergy Unknown Unknown Verified 04/01/20 07:24 famotidine [From Pepcid] Allergy Unknown Unknown Verified 04/01/20 07:24 heparin (porcine) Allergy Unknown Unknown Verified 04/01/20 07:24 Iodinated Contrast Media Allergy Unknown Unknown Verified 04/01/20 07:24 iodine Allergy Unknown Unknown Verified 04/01/20 07:24 Penicillins Allergy Unknown Unknown Verified 04/01/20 07:24 Sulfa (Sulfonamide Allergy Unknown Unknown Verified 04/01/20 07:24 Antibiotics) terazosin [From Hytrin] Allergy Unknown Unknown Verified 04/01/20 07:24 Tetanus Vaccines and Toxoid Allergy Unknown Unknown Verified 04/01/20 07:24 Tetracyclines Allergy Unknown Unknown Verified 04/01/20 07:24 Current Medications Current Medications Generic Name Dose Route Start Last Admin Trade Name Freq PRN Reason Stop Dose Admin Dextrose/Sodium Chloride 1,000 mls @ 75 mls/hr 03/31/20 21:54 03/31/20 23:44 Dextrose 5%-Sod Chloride 0.45% IV 75 mls/hr .[id number] MARIA ISABEL Administration Metronidazole 500 mg in 100 mls @ 100 mls/hr 03/31/20 21:54 04/01/20 02:09 Flagyl Iv IV 04/01/20 16:00 Infused Q8H MARIA ISABEL Infusion Protocol PFSH Acute PFSH: Medical History Carotid artery stenosis Chest pain COPD (chronic obstructive pulmonary disease) COPD exacerbation GERD (gastroesophageal reflux disease) History of colon polyps (~2002) HTN (hypertension) Hyperlipidemia Nicotine dependence PVD (peripheral vascular disease) TIA (transient ischemic attack) Surgical History H/O exploratory laparotomy H/O eye surgery H/O tubal ligation History of appendectomy History of colonoscopy (~2002) History of hysterectomy History of removal of ovarian cyst S/P colonoscopy with polypectomy (~08/2019) Family History Father CAD (coronary artery disease) Grandmother FH: CABG (coronary artery bypass surgery) Denies family history of Anesthesia complication Bleeding disorder Social History Smoking and tobacco status: current every day smoker cigarettes Packs smoked per day: 1 Years cigarettes smoked: 45 Second hand smoke exposure: No Alcohol intake: never Adopted: No Caregiver/support person: Yes Lives independently: Yes Household members: none Housing: Apartment Marital status: Single service: No Current occupational status: retired Current occupational exposures/hazards: No Pets and animals: No History of recent travel: No Sexually active: No Current gender identity: Female Kaylin/Evangelical: Hinduism Special kaylin needs: No Agree to transfusion: No Financial difficulty paying for basics: Decline to Answer Vitals/I&O/Wt Last Vital Signs Temp 98.3 F 04/01/20 04:00 Pulse 69 04/01/20 04:00 Resp 16 04/01/20 04:00 BP 151/75 04/01/20 04:00 Pulse Ox 94 04/01/20 04:00 03/31/20 04/01/20 04/01/20 22:59 06:59 14:59 Intake Total 100 / 100 Balance 100 / 100 Weight last 48 hrs Weight 83 lb Physical Exam Narrative: EXAM NARRATIVE: Patient is conscious alert oriented X3 BMI 15 Head and neck examination PERRLA no masses no cervical lymphadenopathy no jaundice, NG in place with gastric content noticed in the canister Cardiac examination audible S1-S2 no murmurs no gallops no arrhythmias Chest is clear bilateral,abscence of Rhonchi or wheezes,no surgical emphysema Abdomen diffusely tender nondistended soft no organomegaly guarding or rigidity/no signs of peritonitis Extremities no cyanosis no clubbing no edema A&P Assessment and plan (1) Small bowel obstruction: After history taking physical examination and reviewing the chart with my personal interpretation of the CT scan images. I do not appreciate a transition point on the CT scan likely the patient is chronically constipated and backed up. NG to low intermittent wall suction Repeated physical examination Appropriate hydration Strict I's and O's I would recommend milk of molasses enema Once patient starts to respond to the above measures and starts passing gas and having bowel movement, NG tube should be clamped and to be checked residuals in couple of hours if less than 200 can be DC'd and started on clear liquid diet. Thank you for consulting general surgery to participate taking care Ms. Champion Status: Acute Consult Attestations Medical Necessity Statement: Patient requires hospitalization past 2 midnights for management of her potential bowel obstruction make sure that her bowels are moving. And tolerating p.o. intake Time Spent in Patient Care: (>than 50% of time spent in counselling and/or direct pt care on unit). 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
[2020-04-01] MEDS: ipratropium-albuterol 3 mL Neb INHALATION (08:53)
[2020-04-01] MEDS: pantoprazole 40 mg SDV IVP (09:04)
[2020-04-01] MEDS: fondaparinux 2.5 mg/0.5 mL Syringe SUBCUT (10:03)
--- NOTE | 2020-04-01 10:21 | PC.CHAP ---
Pastoral Care Encounter/Spiritual Assessment Type of Contact [] Declined professional wrestler visit [] Patient/Family/Request visit [] Outpatient visit [] Follow-up visit [] Physician referral [] Code/Alert [] Routine visit [] Staff referral [] Actively dying [] Patient sleeping [] Family support [] [] Out of room [] Palliative care [] [] Receiving care in room [] Pre-surgical visit [] Trauma [] Long length of stay [] ICU visit [] Other: Relational/Emotional Strength [] Patient feels connected with others/family/visitors/staff [] Distress [] Loneliness/isolation [] Abandonment Spirituality of Patient [] Person of Kaylin [] Attends Faith of their Kaylin [] Believes in Prayer [] Reads Bible or Islam materials [] There are Spiritual issues to be addressed Derrick Worker Well Service Interventions [] Prayer [] Active listening [] Non-anxious presence [] Spiritual/emotional support [] Crisis/trauma care [] Spiritual counseling [] Bereavement support [] Provided bereavement packet [] Provided Bible/devotional materials [] Provided toy/stuffed animal, coloring book to patient or family member [] Provided Communion [] Anointing/[place] [] Salvation [] Completed spiritual assessment [] Other: Impact on Illness or Injury [] Angry [] Fearful [] Anxious [] Often cries [] Exhaustion [] Unable to work [] Unable to attend confucianist [] Unable to walk/stand [] Unable to read [] Unable to drive [] Unable to eat/drink [] Unable to sleep [] Unable to be with family [] Patient intubated [] Other: Summary Time spent with patient Pastoral Care Encounter/Spiritual Assessment Type of Contact [] Declined professional wrestler visit [] Patient/Family/Request visit [] Outpatient visit [] Follow-up visit [] Physician referral [] Code/Alert [x] Routine visit [] Staff referral [] Actively dying [] Patient sleeping [] Family support [] [] Out of room [] Palliative care [] [] Receiving care in room [] Pre-surgical visit [] Trauma [] Long length of stay [] ICU visit [] Other: Relational/Emotional Strength [x] Patient feels connected with others/family/visitors/staff [] Distress [] Loneliness/isolation [] Abandonment Spirituality of Patient [x] Person of Kaylin [] Attends Faith of their Kaylin [] Believes in Prayer [] Reads Bible or Islam materials [] There are Spiritual issues to be addressed Derrick Worker Well Service Interventions [x] Prayer [x] Active listening [x] Non-anxious presence [x] Spiritual/emotional support [] Crisis/trauma care [] Spiritual counseling [] Bereavement support [] Provided bereavement packet [] Provided Bible/devotional materials [] Provided toy/stuffed animal, coloring book to patient or family member [] Provided Communion [] Anointing/[place] [] Salvation [x] Completed spiritual assessment [] Other: Impact on Illness or Injury [] Angry [] Fearful [] Anxious [] Often cries [] Exhaustion [] Unable to work [] Unable to attend confucianist [] Unable to walk/stand [] Unable to read [] Unable to drive [] Unable to eat/drink [] Unable to sleep [] Unable to be with family [] Patient intubated [] Other: Summary Chaplains Tamiko visited and prayed with Patient; she requested additional visits on following days. Time spent with patient 10 minutes.
--- NOTE | 2020-04-01 11:53 | PM.PN ---
Subjective Subjective: Interval history: History and physical was reviewed. Netta reports she is doing slightly better. Still having some abdominal discomfort. Passing very little gas. No bowel movement. Medications: Reviewed: Yes Vitals/I&O/Wt Last Vital Signs Temp 98.2 F 04/01/20 11:45 Pulse 92 04/01/20 11:45 Resp 18 04/01/20 11:45 BP 134/66 04/01/20 11:45 Pulse Ox 93 04/01/20 11:45 03/31/20 04/01/20 04/01/20 22:59 06:59 14:59 Intake Total 100 / 100 Balance 100 / 100 Weight last 48 hrs Weight 37.648 kg Physical Exam Narrative: EXAM NARRATIVE: General exam no apparent distress Cardiovascular regular rate and rhythm without murmur Lungs clear Abdomen is soft with positive bowel sounds. Slight tenderness Extremities no cyanosis clubbing or edema Data : 04/01/20 03:52 04/01/20 03:52 A&P Assessment and plan (1) Ileus: Continue NG to suction Continue n.p.o. status Appreciate surgery consult for the small bowel obstruction Await return of bowel function with conservative management Placed on Flagyl on admission. Will discontinue. I do not see reason for antibiotics at this time. Continue to hydrate. Magnesium level was checked and normal. Check TSH CT scan indicates significant amount of stool as well. Continue Protonix Status: Acute (2) Right foot pain: Has follow-up with Dr. Engel Status: Acute (3) COPD (chronic obstructive pulmonary disease): Stable Status: Acute Additional A&P Information Tobacco dependency. Counseled Full code DVT prophylaxis fondaparinux as she has allergies to pork products Attestations Medical Necessity Statement*: Needs continued hospitalization, needing supportive care, awaiting resolution of bowel obstruction. 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
[2020-04-01 12:32] LABS: Thyroid Stimulating Hormone 0.59 uIU/mL (0.27-4.20)
--- NOTE | 2020-04-01 18:01 | PC.NURSE ---
pt had NG tube clamped for [address] Lake, pt had 0 output after the one hour being clamped. Dr Herndon ordered nurse to remove NG tube and place on clear liquid diet.
[2020-04-01] MEDS: dextrose 5%-sod chloride 0.45% 1,000 ML 75 ML IV (18:58)
[2020-04-01] MEDS: nicotine 21 mg Patch 1 PATCH TRANSDERMA (23:01)
[2020-04-02] VITALS (7 sets, daily range): BP systolic 130–149; BP diastolic 72–78; PULSE 76–89; RESP 17–18; TEMP 36.6–36.9; O2SAT 93–95
[2020-04-02 03:33] LABS: Basophils % 0.2 %; Eosinophils # 0.1 10^3/uL (0.0-0.8); Eosinophils % 0.9 %; Hematocrit 44.6 % (37.0-47.0); Hemoglobin 14.3 g/dL (11.5-15.3); Lymphocytes # 1.1 10^3/uL (0.8-4.8); Lymphocytes % 20.2 %; Mean Corpuscular HGB Conc 32.1 g/dL (30.0-36.0); Mean Corpuscular Hemoglobin 31.8 pg (28.0-34.0); Mean Corpuscular Volume 99.3 fL (81-99); Mean Platelet Volume 12.3 fL (7.4-10.4); Monocytes # 0.4 10^3/uL (0.2-0.9); Monocytes % 6.5 %; Nucleated Red Blood Cells % 0 %; Platelet Count 112 10^3/cmm (130-400); Red Blood Count 4.49 10^6/uL (4.1-5.3); Red Cell Distribution Width 12.5 % (12.1-15.1); White Blood Count 5.6 10^3/uL (4.0-10.0)
[2020-04-02 03:57] LABS: Alanine Aminotransferase 8 U/L (0-33); Albumin Level 3.1 g/dL (3.5-5.2); Alkaline Phosphatase 63 IU/L (35-105); Anion Gap 10.5 (5-19); Aspartate Amino Transferase 16 U/L (0-32); Blood Urea Nitrogen 13 mg/dL (8-23); Calcium 8.4 mg/dL (8.5-10.5); Carbon Dioxide 27 mmol/L (22-29); Chloride 101 mmol/L (98-107); Globulin 2.6 g/dL (1.3-4.6); Glomerular Filtration Rate 158.3 mL/min (90-130); Glucose 113 mg/dL (65-115); Osmolality Calculated 281 mOsm/kg (285-295); Potassium 3.5 mmol/L (3.5-5.1); Sodium 135 mmol/L (136-145); Total Bilirubin 0.5 mg/dL (0.15-1.2); Total Protein 5.7 g/dL (6.6-8.7)
--- NOTE | 2020-04-02 05:41 | PM.PN ---
Subjective Subjective: Interval history: Continues to pass gas and having bowel movements. Tolerating p.o. intake in the form of clear liquid diet. NG was removed yesterday as patient did well Vitals/I&O/Wt Last Vital Signs Temp 97.9 F 04/02/20 04:00 Pulse 81 04/02/20 04:00 Resp 18 04/02/20 04:00 BP 141/76 04/02/20 04:00 Pulse Ox 93 04/02/20 04:00 04/01/20 04/01/20 04/02/20 14:59 22:59 06:59 Intake Total 1000 / 1000 720 / 1720 Output Total 350 / 350 Balance 1000 / 1000 370 / 1370 Weight last 48 hrs Weight 83 lb Physical Exam Narrative: EXAM NARRATIVE: Patient is conscious alert oriented X3 BMI 15 Head and neck examination PERRLA no masses no cervical lymphadenopathy no jaundice Abdomen nontender nondistended soft no organomegaly guarding or rigidity/no signs of peritonitis Data : 04/02/20 03:04 04/02/20 03:04 A&P Assessment and plan (1) Small bowel obstruction: Patient is responding well to conservative measures Full liquid diet I would encourage the patient to be on Benefiber twice a day Ample of hydration Avoid constipation Can be discharged home today from surgical standpoint of view follow-up at surgery office as needed Thank you for consulting general surgery to participate taking care Ms. Champion Status: Acute Attestations Medical Necessity Statement*: Patient can be discharged home today per surgery unless otherwise specified per hospitalist service. Time Spent in Patient Care: (>than 50% of time spent in counselling and/or direct pt care on unit). 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
[2020-04-02] MEDS: pantoprazole DR 40 mg Tablet PO (10:10)
[2020-04-02] MEDS: fondaparinux 2.5 mg/0.5 mL Syringe SUBCUT (10:10)
--- NOTE | 2020-04-02 10:48 | PC.CHAP ---
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 [] Patient/Family/Request visit [] Outpatient visit [] Follow-up visit [] Physician referral [] Code/Alert [x] Routine visit [] Staff referral [] Actively dying [] Patient sleeping [] Family support [] [] Out of room [] Palliative care [] [] Receiving care in room [] Pre-surgical visit [] Trauma [] Long length of stay [] ICU visit [] Other: Relational/Emotional Strength [x] Patient feels connected with others/family/visitors/staff [] Distress [] Loneliness/isolation [] Abandonment Spirituality of Patient [] Person of Kaylin [x] Attends [employer] of their [place] [] Believes in Prayer [] Reads Bible or Latter Day materials [] There are Spiritual issues to be addressed 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 Interventions [] Prayer [x] Active listening [x] Non-anxious presence [x] Spiritual/emotional support [] Crisis/trauma care [] Spiritual counseling [] Bereavement support [] Provided bereavement packet [] Provided Bible/devotional materials [] Provided toy/stuffed animal, coloring book to patient or family member [] Provided Communion [] Anointing/[place] [] Salvation [x] Completed spiritual assessment [] Other: Impact on Illness or Injury [] Angry [] Fearful [x] Anxious [] Often cries [x] Exhaustion [] Unable to work [] Unable to attend latter-day [] Unable to walk/stand [] Unable to read [x] Unable to drive [] Unable to eat/drink [] Unable to sleep [x] Unable to be with family [] Patient intubated [] Other: Summary Patient stated that she was just waiting for the doctor to let her know what time she can be released. She stated she lived here in [place] but needed to call her sister in [place], [place] to come get her and take her home. Patient stated that she did not need anything from the chaplains. Time spent with patient 6 minutes
[2020-04-02] MEDS: ipratropium-albuterol 3 mL Neb INHALATION (11:44)
--- NOTE | 2020-04-02 18:20 | PC.RESP ---
Smoking Cessation and Pulmonary Rehab information sent to patient.
--- NOTE | 2020-04-02 20:51 | P.DS_ITS ---
Discharge Providers Date of Admission: 04/01/20 12:14 Date of Discharge: April 02, 2020 Attending Provider at Admission: Michael Saini MD Attending Provider at Discharge: Alexis Chavez Primary Care Provider: Arti Rich MD Diagnoses at Discharge Discharge Diagnosis (1) Small bowel obstruction: Status: Acute Reason for Visit Reason for Visit: ABD PAIN Hospital Course Discharge Summary: The patient was hospitalized yesterday for small bowel obstruction. Her condition quickly improved with bowel rest. She also received IV fluids and pain medications. Today she was seen and evaluated by Dr. Dobbins. Diet was initiated which he tolerated very well. She had a bowel movement. Abdominal pain has resolved. No nausea or vomiting. No fever or chills. No chest pain, shortness of breath, cough, palpitations. Eager to go home. She was cleared for discharge. He was instructed to follow-up with the primary care physician. She was instructed to come back to emergency room if she develops any of the above listed symptoms or any new symptoms. She verbalized understanding and agreement. Diet instructions were discussed with her. On physical exam the patient was awake alert oriented. No acute distress. Mood and affect are appropriate. Responses are adequate. Skin warm and dry. Moist mucous membranes. No JVD Lungs clear Heart S1 S 2 regular Abdomen soft, nontender, bowel sounds are present Extremities no edema cyanosis or calf tenderness bilaterally Discharge Data Data Completed and Pending: Completed Studies During Hospitalization Category Date Time Status XR chest 1V hai ble [id number] Routine Exams 03/31/20 23:00 Completed Labs from last 24 hours 04/02/20 04/02/20 03:04 03:04 WBC 5.6 RBC 4.49 Hgb 14.3 Hct 44.6 MCV 99.3 H MCH 31.8 MCHC 32.1 RDW 12.5 Plt Count 112 L MPV 12.3 H Neut % (Auto) 72.0 Lymph % (Auto) 20.2 Richardson % (Auto) 6.5 Eos % (Auto) 0.9 Baso % (Auto) 0.2 Neut # (Auto) 4.00 Lymph # (Auto) 1.1 Richardson # (Auto) 0.4 Eos # (Auto) 0.1 Baso # (Auto) 0.0 Nucleated RBC % (a uto) 0 Nucleated RBCs # 0.0 Sodium 135 L Potassium 3.5 Chloride 101 Carbon Dioxide 27 Anion Gap 10.5 BUN 13 Creatinine 0.4 L GFR Calculation 158.3 H Glucose 113 Calculated Osmolal ity 281 L Calcium 8.4 L Total Bilirubin 0.5 AST 16 ALT 8 Alkaline Phosphata se 63 Total Protein 5.7 L Albumin 3.1 L Globulin 2.6 Vitals: Last Vital Signs Temp 98.4 F 04/02/20 11:23 Pulse 89 04/02/20 11:53 Resp 18 04/02/20 11:51 BP 130/74 04/02/20 11:23 Pulse Ox 95 04/02/20 11:51 Discharge Plan Discharge Patient Disposition: Home Condition: Stable Prescriptions: New nicotine 21 mg/24 hr Patch 24 Hour 1 patch transdermal DAILY PRN (Reason: Nicotine Cravings) Qty: 14 RF: 0 Metamucil [place] Powder 1 tbsp PO BID Qty: 575 RF: 0 Continued albuterol sulfate 2.5 mg /3 mL (0.083 %) solution for nebulization 2.5 mg INHALATION Q4H PRN (Reason: shortness of breath or wheezing) Qty: 90 RF: 0 calcium 1200mg with Vitamin D3 1 cap PO BID RF: 0 lisinopril 20 mg tablet 20 mg PO DAILY Qty: 90 RF: 2 atorvastatin 20 mg tablet 20 mg PO DAILY Qty: 90 RF: 2 omeprazole 20 mg capsule,delayed release(DR/EC) 20 mg PO DAILY Qty: 90 RF: 3 loratadine 10 mg tablet 10 mg PO DAILY Qty: 90 RF: 3 Stiolto Respimat 2.5-2.5 mcg/actuation mist 2 puff INHALATION Q24H Qty: 4 RF: 3 aspirin 81 mg Tablet,Delayed Release (Dr/Ec) 81 mg PO DAILY RF: 0 docusate sodium [Colace] 100 mg Capsule 100 mg PO DAILY RF: 0 albuterol sulfate [Ventolin HFA] 90 mcg/actuation Hfa Aerosol Inhaler 2 puff INHALATION Q4H PRN (Reason: Shortness Of Breath) RF: 0 mirtazapine 15 mg tablet 15 mg PO BEDTIME RF: 0 Discontinued Chantix Continuing Month Box 1 mg tablet 1 mg PO BID Qty: 56 RF: 0 Discharge Orders: Discharge Order (Routine); Ordered 04/02/20 Ordered By: Alexis Chavez Referrals: Arti Rich MD [Primary Care Provider] - 04/12/20 8:30 am (You have an appointment with Robbie on April 12 at 8:30am) Discharge Diet: Advance as tolerated and As Directed Discharge Activity: Resume usual activity Patient Instructions: Nicotine (Absorbed through the skin), COPD - Emphysema, How to Stop Smoking (DC), Cigarette Smoking and Your Health (GEN) Activity Restrictions/Additional Instructions: Please follow-up with the primary care physician in about 1 week. Please come back to emergency room if develop any worsening abdominal pain, nausea or vomiting, distention, diarrhea or constipation, fever or chills, shortness of breath, cough, chest pain or any other new complaints. 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
== END 2020-04-02 12:02 | disposition home or self-care (01) | DRG 389 ==
LOC: ER 17:55 → MEDSURG 21:31
PROVIDERS: Internal Medicine; Admitting Provider Student in an Organized Health Care Education/Training Program; Emergency Provider Emergency Medicine; PCP Family Medicine; Visit Provider Internal Medicine
DX: K56.7 Ileus, unspecified (principal); E87.1 Hypo-osmolality and hyponatremia; Z79.82 Long term (current) use of aspirin; J44.9 Chronic obstructive pulmonary disease, unspecified; F17.210 Nicotine dependence, cigarettes, uncomplicated; I65.29 Occlusion and stenosis of unspecified carotid artery; Z86.73 Personal history of transient ischemic attack (TIA), and cerebral infarction without residual deficits; E78.5 Hyperlipidemia, unspecified; K21.9 Gastro-esophageal reflux disease without esophagitis; I10 Essential (primary) hypertension
CPT/HCPCS: 12345; 36415; 71045; 74018; 74176; 80048; 80053; 81001; 83690; 83735; 84443; 85025; 94640; 96365; 96366; 96372; 96375; 99282; 99284; C9113; G0378; J0696; J1652; J2270; J2405; J3480; J7030; J7799; S0030